=== PATIENT | female | born 1955 | race Caucasian/White ===

== ENCOUNTER 2018-08-27 16:42 | Emergency (ER) | payer OTHER ==
[~2018-08-27] VITALS: Ht 157.5 cm; Wt 61.7 kg
[2018-08-27] MEDS ORDERED: VITAMIN D5000 UNIT (16:48)
[2018-08-27] MEDS ORDERED: PROGESTERONE200 MG (16:48)
[2018-08-27] MEDS ORDERED: SYNTHROID50 MCG (16:48)
== END 2018-08-27 19:58 | disposition home or self-care (01) ==
LOC: ER 16:42
DX: S30.0XXA Contusion of lower back and pelvis, initial encounter (principal); S40.011A Contusion of right shoulder, initial encounter; W18.39XA Other fall on same level, initial encounter; Y93.89 Activity, other specified; Y92.832 Beach as the place of occurrence of the external cause; Y99.8 Other external cause status

== ENCOUNTER 2018-12-28 16:52 | Emergency (ER) | payer OTHER ==
[~2018-12-28] VITALS: Ht 157.5 cm; Wt 61.2 kg
[~2018-12-28 16:52] MED LIST: PROGESTERONE200 MG; SYNTHROID50 MCG; VITAMIN D5000 UNIT
[2018-12-28] MEDS ORDERED: PROGESTERONE200 MG (17:01)
[2018-12-28] MEDS ORDERED: VITAMIN D35000 UNIT (17:01)
[2018-12-28] MEDS ORDERED: VITAMIN C500 M1 (17:02)
[2018-12-28] MEDS ORDERED: OMEGA 3 1,0001 EACH (17:02)
== END 2018-12-28 21:22 | disposition home or self-care (01) ==
LOC: ER 16:52
DX: K57.90 Diverticulosis of intestine, part unspecified, without perforation or abscess without bleeding (principal); R10.32 Left lower quadrant pain

== ENCOUNTER 2024-04-16 21:27 | Emergency (ER) | payer OTHER ==
[~2024-04-16] VITALS: Ht 157.5 cm; Wt 61.2 kg
[~2024-04-16 21:27] MED LIST changes: +OMEGA 3 1,0001 EACH; +VITAMIN C500 M1; +VITAMIN D35000 UNIT
[2024-04-16 22:15] VITALS: BP 124/76; O2SAT 100
== END 2024-04-16 22:52 | disposition home or self-care (01) ==
LOC: ER 21:29
DX: S61.211A Laceration without foreign body of left index finger without damage to nail, initial encounter (principal); W45.8XXA Other foreign body or object entering through skin, initial encounter; Y93.89 Activity, other specified; Y92.89 Other specified places as the place of occurrence of the external cause; Y99.9 Unspecified external cause status